=== PATIENT | female | born 1980 | race Caucasian/White ===

== ENCOUNTER 2019-11-20 12:37 | Outpatient (CLI) | payer OTHER ==
[~2019-11-20 12:37] MED LIST: IBUP-1222 PO
== END 2019-11-20 23:59 | disposition home or self-care (01) ==
LOC: CFH 12:37
PROVIDERS: ATTEND Obstetrics & Gynecology
DX: Z12.31 Encounter for screening mammogram for malignant neoplasm of breast (principal); N64.89 Other specified disorders of breast
CPT/HCPCS: 77067

== ENCOUNTER 2020-07-14 18:21 | Emergency (ER) | payer OTHER ==
[~2020-07-14] VITALS: Ht 167.6 cm; Wt 76.9 kg
[2020-07-14] MEDS ORDERED: PROCHLORPERAZINE 5 MG/ML, 2ML IVPush ONE (19:00)
[2020-07-14] MEDS ORDERED: DIPHENHYDRAMINE 50 MG/ML, 1ML IVPush ONE (19:00)
[2020-07-14] MEDS ORDERED: SODIUM CHLORIDE FLUSH 10ML SYR IVF ONE (19:00)
[2020-07-14] MEDS ORDERED: SODIUM CHLORIDE 0.9% 1,000ML IVBOLUS ONE (19:00)
[2020-07-14] MEDS ORDERED: KETOROLAC 30 MG/1 ML IVPush ONE (19:00)
[2020-07-14] MEDS ORDERED: DIPHENHYDRAMINE 50 MG/ML, 1ML ONE (19:21)
[2020-07-14] MEDS ORDERED: PROCHLORPERAZINE 5 MG/ML, 2ML ONE (19:21)
[2020-07-14] MEDS ORDERED: KETOROLAC 30 MG/1 ML ONE (19:22)
--- NOTE | 2020-07-14 19:58 | NUR ---
Patient resting in bed, eyes closed. Pain is not yet improving. Pending CT scan and post-medication pain reassesment. Family at bedside, call torres within reach, and given warm blanket as requested.
--- NOTE | 2020-07-14 21:12 | NUR ---
Patient given discharge instructions and they have confirmed that they understand the instructions. Patient ambulatory with steady gait.
[2020-07-14 21:14] VITALS: BP 100/54
== END 2020-07-14 21:20 | disposition home or self-care (01) ==
LOC: ED 20:05
DX: G44.219 Episodic tension-type headache, not intractable (principal); R63.0 Anorexia; R94.31 Abnormal electrocardiogram [ECG] [EKG]
CPT/HCPCS: 70450; 72125; 93005; 96361; 96374; 96375; 99285; J0780; J1200; J1885; J7030

== ENCOUNTER → 2020-12-02 | Outpatient (CLI) | payer OTHER | END | disposition home or self-care (01) | LOC: CFH 12:43 | PROVIDERS: ATTEND Obstetrics & Gynecology | DX: Z12.31 Encounter for screening mammogram for malignant neoplasm of breast (principal) | CPT/HCPCS: 77063; 77067 ==